=== PATIENT | male | born 1990 | race Caucasian/White ===

== ENCOUNTER 2019-10-27 03:24 | Emergency (ER) | payer OTHER ==
[~2019-10-27] VITALS: Ht 177.8 cm; Wt 81.6 kg
[2019-10-27 03:24] VITALS: BP 168/70; Ht 177.8 cm; Wt 81.6 kg
== END 2019-10-27 09:31 | disposition expired ==
LOC: ED 03:24 → EDBD 03:24 → ED 09:31
DX: I46.9 Cardiac arrest, cause unspecified (principal); S06.9X0A Unspecified intracranial injury without loss of consciousness, initial encounter; X58.XXXA Exposure to other specified factors, initial encounter; Y93.89 Activity, other specified; Y92.89 Other specified places as the place of occurrence of the external cause; Y99.8 Other external cause status
CPT/HCPCS: Q0092